=== PATIENT | female | born 1960 | race Caucasian/White ===

== ENCOUNTER 2022-10-12 20:13 | Inpatient (IN) | payer MEDICAID ==
[~2022-10-12] VITALS: Ht 149.9 cm; Wt 88.0 kg
[2022-10-12 20:13] VITALS: BP 130/80; PULSE 100; RESP 16; TEMP 98.4; O2SAT 98
[~2022-10-12 20:13] MED LIST: METF-1243 PO; METF-346 PO; SIMV-369 PO; SITA100T8 PO
[2022-10-12 21:09] LABS: EOSINOPHILS % (AUTO) 0.1 % (0.0-4.0); HEMATOCRIT 31.5 % (36-48); HEMOGLOBIN 10.5 g/dL (12.0-16.0); LYMPHOCYTES # (AUTO) 0.8 K/uL (2.5-16.5); LYMPHOCYTES % (AUTO) 3.9 % (20.5-51.1); MEAN CORPUSCULAR HEMOGLOBIN 29 pg (27-31); MEAN CORPUSCULAR HGB CONC 34 g/dL (33-37); MEAN CORPUSCULAR VOLUME 86.6 fL (80-94); MONOCYTES % (AUTO) 5.2 % (1.7-9.3); NEUTROPHILS # (AUTO) 18.1 K/uL (1.8-7.7); NEUTROPHILS % (AUTO) 90.8 % (42.2-75.2); PLATELET COUNT (AUTO) 115 K/uL (140-450); RED BLOOD CELL COUNT(AUTO) 3.63 MIL/uL (4.20-5.40); RED CELL DISTRIBUTION WIDTH 13.6 % (11.6-13.7)
[2022-10-12] MEDS ORDERED: NACL 0.9% 1,000 ML IV ONE ×2 (21:40→22:15)
[2022-10-12 21:44] LABS: ALANINE AMINOTRANSFERASE 27 U/L (12-78); ALBUMIN 2.6 g/dL (3.4-5.0); ALKALINE PHOSPHATASE 59 U/L (50-136); ANION GAP 25.5 (8-16); ASPARTATE AMINOTRANSFERASE 69 U/L (15-37); CALCIUM 8.4 mg/dL (8.5-10.1); CARBON DIOXIDE 15.8 mmol/L (21-32); CHLORIDE 98 mmol/L (98-107); GFR ARICAN-AMERICAN 10 mL/min (>90); GFR NON ARICAN-AMERICAN 8 mL/min (>90); GLUCOSE 294 mg/dL (74-106); POTASSIUM 4.3 mmol/L (3.5-5.1); SODIUM SERUM 135 mmol/L (136-145); TOTAL BILIRUBIN 1.3 mg/dL (0.0-1.0); TOTAL PROTEIN, SERUM 6.9 g/dL (6.4-8.2)
[2022-10-12] MEDS ORDERED: ASPIRIN 325 MG TAB PO ONE ×2 (21:50→23:00)
[2022-10-12 22:04] LABS: CREATININE 5.5 mg/dL (0.6-1.3); UREA NITROGEN, BLOOD 66 mg/dL (7-18)
[2022-10-12] MEDS ORDERED: CRUSHER, PILL MC ONE (22:06)
[2022-10-12] MEDS ORDERED: cefTRIAXone 1,000 MG VIAL ONE (22:37)
[2022-10-12] MEDS ORDERED: hePARIN / DEXT 5% PREMIX 250 ML IV ONE (22:55)
[2022-10-12] MEDS ORDERED: HEPARIN PER PHARMACY MC ONE (22:55)
[2022-10-12 23:09] LABS: LACTIC ACID 7.4 mmol/L (0.4-2.0)
[2022-10-12 23:21] LABS: INR 1.26 (0.8-1.2); PARTIAL THROMBOPLASTIN TIME 33.6 secs (22-35.6); PROTHROMBIN TIME 13.1 secs (10.8-13.4)
[2022-10-13] VITALS (32 sets, daily range): BP systolic 74–133; BP diastolic 43–81; PULSE 91–143; RESP 24–57; TEMP 97.6–101.4; O2SAT 94–100
[2022-10-13] MEDS ORDERED: fentaNYL citrate 0.05 MG/ML VIAL IVP ONE (00:20)
[2022-10-13] MEDS ORDERED: NOREPINEPHRINE 8 MG in DEXTROSE 5% 250 ML IV PRN (00:45)
[2022-10-13] MEDS ORDERED: VANCOMYCIN 1,000 MG in DEXTROSE 5% 250 ML IV ONE (00:50)
[2022-10-13] MEDS ORDERED: CALCIUM GLUC 1 GM/50 mL NS BAG 50 ML IV ONE ×2 (00:55→05:09)
[2022-10-13 01:28] LABS: APPEARANCE,URINE CLOUDY (CLEAR); BILIRUBIN,URINE NEGATIVE (NEGATIVE); BLOOD, URINE 2+ (NEGATIVE); COLOR,URINE YELLOW (YELLOW); LEUKOCYTE ESTERASE ,URINE 3+ (NEGATIVE); NITRITE, URINE NEGATIVE (NEGATIVE); PROTEIN,URINE 3+ (NEGATIVE); UGLUCOSE NEGATIVE (NEGATIVE); UROBILINOGEN,URINE 0.2 EU/dL (0.2 - 1)
[2022-10-13 01:31] LABS: BACTERIA,URINE >30 (MANY) /HPF (None Seen); MUCUS,URINE 1+ /LPF (None Seen); SQUAMOUS EPITHELIAL CELL,UR 4-10 (MOD) /LPF (0-3 (FEW)); WBC,URINE TOO MANY TO COUNT /HPF (0-5)
[2022-10-13] MEDS ORDERED: NOREPINEPHRINE 4 MG/4 ML VIAL IV ONE (01:36)
[2022-10-13] MEDS ORDERED: NACL 0.9% 1,000 ML IV SCH ×2 (01:50→05:40)
[2022-10-13] MEDS ORDERED: MAGNESIUM OXIDE 400 MG TAB PO PRN (01:50)
[2022-10-13] MEDS ORDERED: VANCOMYCIN PER PHARMACY MC PRN (01:50)
[2022-10-13] MEDS ORDERED: MORPHINE SULFATE 4 MG/ML SYR IVP PRN (01:50)
[2022-10-13] MEDS ORDERED: MAG SULF 2000 MG/WATER PREMIX 50 ML IV PRN (01:50)
[2022-10-13] MEDS ORDERED: POTASSIUM CHLORIDE 10 MEQ TABER PO PRN (01:50)
[2022-10-13] MEDS ORDERED: ONDANSETRON 4 MG/2 ML VIAL IVP PRN (01:50)
[2022-10-13] MEDS ORDERED: KCL 20 MEQ IN 100 mL PREMIX 200 ML IV PRN (01:50)
[2022-10-13] MEDS ORDERED: fentaNYL citrate 0.05 MG/ML VIAL ONE (03:55)
[2022-10-13] MEDS: hePARIN / DEXT 5% PREMIX 250 ML IV SCH (04:35)
[2022-10-13] MEDS ORDERED: VANCOMYCIN 1,000 MG VIAL ONE (05:07)
[2022-10-13 05:56] LABS: BLOOD GAS PH 7.365 (7.35-7.45)
[2022-10-13 05:57] LABS: BLOOD GAS BASE EXCESS -8.4 mmol/L (-2.0-2.0); BLOOD GAS HCO3 15.6 mmol/L (22-26); BLOOD GAS PO2 92.9 mmHg (75-100)
[2022-10-13] MEDS ORDERED: PIPERACILLIN/TAZOBACTAM 3.375 GM in DEXTROSE 5% 50 ML IV SCH (06:00)
[2022-10-13] MEDS: NOREPINEPHRINE 8 MG in DEXTROSE 5% 250 ML IV PRN ×2 (06:49→19:10)
[2022-10-13] MEDS ORDERED: PIPERACILLIN/TAZOBACTAM 2.25 GM in DEXTROSE 5% 50 ML IV SCH (07:23)
[2022-10-13] MEDS ORDERED: HEPARIN PER PHARMACY MC PRN (07:35)
[2022-10-13] MEDS: BLOOD GLUCOSE MONITORING 1 DEV DEV FS SCH ×4 (08:01→20:40)
[2022-10-13 08:06] LABS: HEMATOCRIT 31.6 % (36-48); HEMOGLOBIN 10.6 g/dL (12.0-16.0); MEAN CORPUSCULAR HEMOGLOBIN 29 pg (27-31); MEAN CORPUSCULAR HGB CONC 34 g/dL (33-37); MEAN CORPUSCULAR VOLUME 86.6 fL (80-94); PLATELET COUNT (AUTO) 118 K/uL (140-450); RED BLOOD CELL COUNT(AUTO) 3.65 MIL/uL (4.20-5.40); RED CELL DISTRIBUTION WIDTH 13.9 % (11.6-13.7)
[2022-10-13] MEDS: INSULIN LISPRO SLIDING SCALE 100 UNITS/ML VIAL SUBQ PRN ×2 (08:09→16:48)
[2022-10-13 08:13] LABS: WHITE BLOOD COUNT (AUTO) 28.7 K/uL (4.8-10.8)
[2022-10-13 08:19] LABS: ALBUMIN 2.4 g/dL (3.4-5.0); ANION GAP 20.8 (8-16); CALCIUM 8.5 mg/dL (8.5-10.1); CARBON DIOXIDE 19.7 mmol/L (21-32); POTASSIUM 4.5 mmol/L (3.5-5.1); TOTAL BILIRUBIN 1.1 mg/dL (0.0-1.0); TOTAL PROTEIN, SERUM 6.6 g/dL (6.4-8.2)
[2022-10-13 08:23] LABS: CREATININE 5.7 mg/dL (0.6-1.3)
[2022-10-13 08:48] LABS: BASOPHILS % (MANUAL) 0 % (0-2); BLASTS, MANUAL % 0 % (0-0); EOSINOPHILS % (MANUAL) 0 % (0-4); LYMPHOCYTES % (MANUAL) 2 % (20-46); METAMYELOCYTES % 0 % (0-0); MONOCYTES % (MANUAL) 2 % (5-12); MYELOCYTES % 0 % (0-0); OTHER CELLS,MANUAL % 0 (0-0); PROMYELOCYTES % 0 % (0-0)
[2022-10-13] MEDS ORDERED: ASPIRIN 325 MG TABEC PO ONE (09:00)
[2022-10-13] MEDS ORDERED: FUROSEMIDE 40 MG/4 ML VIAL IVP SCH (09:27)
[2022-10-13] MEDS: LORazepam 2 MG/ML VIAL ONE ×2 (09:49→10:24)
[2022-10-13] MEDS ORDERED: LORazepam 2 MG/ML VIAL IVP PRN (10:20)
[2022-10-13] MEDS: ALBUTEROL SULFATE/IPRATROPIU 3 ML SOL IH PRN (11:02)
[2022-10-13] MEDS ORDERED: DEXMEDETOMIDINE HCL 400 MCG in NACL 0.9% 96 ML IV PRN (11:15)
[2022-10-13 12:17] LABS: BLOOD GAS PCO2 22.6 mmHg (35-45); BLOOD GAS PH 7.356 (7.35-7.45); BLOOD GAS PO2 78.7 mmHg (75-100)
[2022-10-13 12:18] LABS: BLOOD GAS BASE EXCESS -11.3 mmol/L (-2.0-2.0); BLOOD GAS HCO3 12.4 mmol/L (22-26); BLOOD GAS O2 SAT% 95.5 % (92.0-98.5)
[2022-10-13] MEDS: ALBUTEROL SULFATE/IPRATROPIU 3 ML SOL IH SCH ×2 (13:10→19:06)
[2022-10-13] MEDS: ALBUMIN HUMAN 25% 100 ML IV SCH ×2 (13:47→20:42)
[2022-10-13] MEDS: METOCLOPRAMIDE 10 MG/2 ML INJ VIAL IVP SCH ×2 (13:47→20:41)
[2022-10-13] MEDS: metroNIDAZOLE 500 MG/NS PREMIX 100 ML IV SCH ×2 (14:27→20:41)
[2022-10-13] MEDS ORDERED: ACETAMINOPHEN 650 MG SUPP RC PRN (20:05)
[2022-10-13] MEDS: PIPERACILLIN/TAZOBACTAM 2.25 GM in DEXTROSE 5% 50 ML IV SCH (20:40)
[2022-10-14] VITALS (36 sets, daily range): BP systolic 97–140; BP diastolic 49–92; PULSE 93–105; RESP 18–37; TEMP 95.5–99.4; O2SAT 96–100
[2022-10-14] MEDS: ALBUTEROL SULFATE/IPRATROPIU 3 ML SOL IH SCH ×4 (01:10→19:21)
[2022-10-14] MEDS: ALBUMIN HUMAN 25% 100 ML IV SCH (04:16)
[2022-10-14] MEDS: METOCLOPRAMIDE 10 MG/2 ML INJ VIAL IVP SCH (04:16)
[2022-10-14] MEDS: PIPERACILLIN/TAZOBACTAM 2.25 GM in DEXTROSE 5% 50 ML IV SCH ×3 (04:17→21:03)
[2022-10-14] MEDS: metroNIDAZOLE 500 MG/NS PREMIX 100 ML IV SCH ×3 (04:17→21:03)
[2022-10-14 06:18] LABS: BASOPHILS % (AUTO) 0.1 % (0.0-2.0); EOSINOPHILS # (AUTO) 0.6 K/uL (0-0.4); EOSINOPHILS % (AUTO) 2.1 % (0.0-4.0); LYMPHOCYTES # (AUTO) 1.2 K/uL (2.5-16.5); LYMPHOCYTES % (AUTO) 3.9 % (20.5-51.1); MEAN CORPUSCULAR HEMOGLOBIN 29 pg (27-31); MEAN CORPUSCULAR HGB CONC 34 g/dL (33-37); MEAN CORPUSCULAR VOLUME 86.8 fL (80-94); MONOCYTES # (AUTO) 1.2 K/uL (0.8-1.0); MONOCYTES % (AUTO) 3.8 % (1.7-9.3); NEUTROPHILS # (AUTO) 28.4 K/uL (1.8-7.7); NEUTROPHILS % (AUTO) 90.1 % (42.2-75.2); PLATELET COUNT (AUTO) 74 K/uL (140-450); RED BLOOD CELL COUNT(AUTO) 2.15 MIL/uL (4.20-5.40); RED CELL DISTRIBUTION WIDTH 14.3 % (11.6-13.7)
[2022-10-14] MEDS: BLOOD GLUCOSE MONITORING 1 DEV DEV FS SCH ×4 (06:33→21:00)
[2022-10-14 06:41] LABS: HEMATOCRIT 18.6 % (36-48); HEMOGLOBIN 6.3 g/dL (12.0-16.0); WHITE BLOOD COUNT (AUTO) 31.5 K/uL (4.8-10.8)
[2022-10-14 06:54] LABS: ALBUMIN 2.5 g/dL (3.4-5.0); CALCIUM 7.7 mg/dL (8.5-10.1); CARBON DIOXIDE 16.2 mmol/L (21-32); MAGNESIUM 1.7 mg/dL (1.8-2.4); PHOSPHORUS 6.3 mg/dL (2.5-4.9); POTASSIUM 4.2 mmol/L (3.5-5.1); TOTAL BILIRUBIN 2.5 mg/dL (0.0-1.0); TOTAL PROTEIN, SERUM 6.2 g/dL (6.4-8.2)
[2022-10-14 07:28] LABS: BASOPHILS # (AUTO) 0.1 K/uL (0.00-0.22); BASOPHILS % (AUTO) 0.2 % (0.0-2.0); EOSINOPHILS # (AUTO) 0.9 K/uL (0-0.4); EOSINOPHILS % (AUTO) 3.3 % (0.0-4.0); HEMATOCRIT 25.9 % (36-48); HEMOGLOBIN 8.7 g/dL (12.0-16.0); LYMPHOCYTES # (AUTO) 1.1 K/uL (2.5-16.5); LYMPHOCYTES % (AUTO) 4.1 % (20.5-51.1); MEAN CORPUSCULAR HEMOGLOBIN 29 pg (27-31); MEAN CORPUSCULAR HGB CONC 34 g/dL (33-37); MEAN CORPUSCULAR VOLUME 85.7 fL (80-94); MONOCYTES # (AUTO) 0.7 K/uL (0.8-1.0); MONOCYTES % (AUTO) 2.8 % (1.7-9.3); NEUTROPHILS # (AUTO) 23.5 K/uL (1.8-7.7); NEUTROPHILS % (AUTO) 89.6 % (42.2-75.2); PLATELET COUNT (AUTO) 63 K/uL (140-450); RED BLOOD CELL COUNT(AUTO) 3.02 MIL/uL (4.20-5.40); RED CELL DISTRIBUTION WIDTH 14.3 % (11.6-13.7)
[2022-10-14 07:39] LABS: WHITE BLOOD COUNT (AUTO) 26.2 K/uL (4.8-10.8)
[2022-10-14 07:51] LABS: CREATININE 6.4 mg/dL (0.6-1.3)
[2022-10-14] MEDS: ATORVASTATIN 80 MG TAB PO SCH (09:00)
[2022-10-14] MEDS: ECOTRIN 81 MG TABEC PO SCH (09:00)
[2022-10-14] MEDS: NOREPINEPHRINE 8 MG in DEXTROSE 5% 250 ML IV PRN (09:25)
[2022-10-14] MEDS: hePARIN / DEXT 5% PREMIX 250 ML IV SCH (09:28)
[2022-10-14] MEDS: INSULIN LISPRO SLIDING SCALE 100 UNITS/ML VIAL SUBQ PRN ×2 (13:20→23:18)
[2022-10-15] VITALS (27 sets, daily range): BP systolic 102–144; BP diastolic 51–73; PULSE 80–99; RESP 18–34; TEMP 96.1–97.3; O2SAT 87–100
[2022-10-15] MEDS: ALBUTEROL SULFATE/IPRATROPIU 3 ML SOL IH SCH ×4 (00:02→18:54)
[2022-10-15] MEDS: NOREPINEPHRINE 8 MG in DEXTROSE 5% 250 ML IV PRN (03:34)
[2022-10-15] MEDS: PIPERACILLIN/TAZOBACTAM 2.25 GM in DEXTROSE 5% 50 ML IV SCH ×3 (04:38→21:37)
[2022-10-15] MEDS: metroNIDAZOLE 500 MG/NS PREMIX 100 ML IV SCH ×3 (04:54→21:37)
[2022-10-15 05:57] LABS: HEMATOCRIT 26.9 % (36-48); HEMOGLOBIN 9.3 g/dL (12.0-16.0); MEAN CORPUSCULAR HEMOGLOBIN 29 pg (27-31); MEAN CORPUSCULAR HGB CONC 35 g/dL (33-37); MEAN CORPUSCULAR VOLUME 84.4 fL (80-94); PLATELET COUNT (AUTO) 55 K/uL (140-450); RED BLOOD CELL COUNT(AUTO) 3.19 MIL/uL (4.20-5.40); RED CELL DISTRIBUTION WIDTH 13.9 % (11.6-13.7); WHITE BLOOD COUNT (AUTO) 21.9 K/uL (4.8-10.8)
[2022-10-15 06:16] LABS: ALBUMIN 2.3 g/dL (3.4-5.0); CALCIUM 7.9 mg/dL (8.5-10.1); CARBON DIOXIDE 24.3 mmol/L (21-32); CREATININE 3.4 mg/dL (0.6-1.3); MAGNESIUM 1.9 mg/dL (1.8-2.4); PHOSPHORUS 2.8 mg/dL (2.5-4.9); POTASSIUM 3.3 mmol/L (3.5-5.1); TOTAL BILIRUBIN 2.3 mg/dL (0.0-1.0); TOTAL PROTEIN, SERUM 6.1 g/dL (6.4-8.2)
[2022-10-15 06:32] LABS: MONOCYTES % (MANUAL) 6 % (5-12)
[2022-10-15 06:34] LABS: LYMPHOCYTES % (MANUAL) 8 % (20-46)
[2022-10-15] MEDS: BLOOD GLUCOSE MONITORING 1 DEV DEV FS SCH ×4 (07:30→21:37)
[2022-10-15] MEDS: INSULIN LISPRO SLIDING SCALE 100 UNITS/ML VIAL SUBQ PRN ×3 (08:58→21:41)
[2022-10-15] MEDS: ATORVASTATIN 80 MG TAB PO SCH (09:04)
[2022-10-15] MEDS: ECOTRIN 81 MG TABEC PO SCH (09:08)
[2022-10-15] MEDS: PANTOPRAZOLE 40 MG INJ VIAL IVP SCH (09:08)
[2022-10-15] MEDS: hePARIN / DEXT 5% PREMIX 250 ML IV SCH (15:16)
[2022-10-16] VITALS (25 sets, daily range): BP systolic 96–139; BP diastolic 45–87; PULSE 81–96; RESP 16–30; TEMP 96.6–97.9; O2SAT 95–100
[2022-10-16] MEDS: ALBUTEROL SULFATE/IPRATROPIU 3 ML SOL IH SCH ×4 (01:02→19:00)
[2022-10-16] MEDS: PIPERACILLIN/TAZOBACTAM 2.25 GM in DEXTROSE 5% 50 ML IV SCH ×3 (05:02→21:53)
[2022-10-16] MEDS: metroNIDAZOLE 500 MG/NS PREMIX 100 ML IV SCH ×3 (05:02→22:02)
[2022-10-16] MEDS: BLOOD GLUCOSE MONITORING 1 DEV DEV FS SCH ×4 (07:30→21:00)
[2022-10-16 08:38] LABS: HEMOGLOBIN 9.9 g/dL (12.0-16.0); PLATELET COUNT (AUTO) 48 K/uL (140-450)
[2022-10-16 08:44] LABS: HEMATOCRIT 28.7 % (36-48); MEAN CORPUSCULAR HEMOGLOBIN 29 pg (27-31); MEAN CORPUSCULAR HGB CONC 34 g/dL (33-37); MEAN CORPUSCULAR VOLUME 84.7 fL (80-94); RED BLOOD CELL COUNT(AUTO) 3.39 MIL/uL (4.20-5.40); RED CELL DISTRIBUTION WIDTH 14.1 % (11.6-13.7)
[2022-10-16] MEDS: ECOTRIN 81 MG TABEC PO SCH (08:48)
[2022-10-16] MEDS: ATORVASTATIN 80 MG TAB PO SCH (08:48)
[2022-10-16] MEDS: INSULIN LISPRO SLIDING SCALE 100 UNITS/ML VIAL SUBQ PRN ×4 (08:52→23:00)
[2022-10-16] MEDS: PANTOPRAZOLE 40 MG INJ VIAL IVP SCH (08:53)
[2022-10-16 08:55] LABS: EOSINOPHILS % (MANUAL) 1 % (0-4); LYMPHOCYTES % (MANUAL) 10 % (20-46); MONOCYTES % (MANUAL) 6 % (5-12)
[2022-10-16 09:08] LABS: ANION GAP 12.9 (8-16); CALCIUM 7.5 mg/dL (8.5-10.1); CARBON DIOXIDE 27.5 mmol/L (21-32); CREATININE 2.8 mg/dL (0.6-1.3); MAGNESIUM 1.8 mg/dL (1.8-2.4); PHOSPHORUS 1.9 mg/dL (2.5-4.9); POTASSIUM 3.4 mmol/L (3.5-5.1); TOTAL BILIRUBIN 2.4 mg/dL (0.0-1.0); TOTAL PROTEIN, SERUM 5.7 g/dL (6.4-8.2)
[2022-10-16 18:02] LABS: ANION GAP 13.5 (8-16); CALCIUM 7.5 mg/dL (8.5-10.1); CREATININE 3.3 mg/dL (0.6-1.3); POTASSIUM 3.5 mmol/L (3.5-5.1)
[2022-10-16 18:14] LABS: ANION GAP 12.8 (8-16); CALCIUM 7.4 mg/dL (8.5-10.1); CARBON DIOXIDE 27.7 mmol/L (21-32); CREATININE 3.3 mg/dL (0.6-1.3); POTASSIUM 3.5 mmol/L (3.5-5.1)
[2022-10-17] VITALS (9 sets, daily range): BP systolic 107–158; BP diastolic 48–79; PULSE 71–87; RESP 18–20; TEMP 97.5–97.8; O2SAT 90–98
[2022-10-17] MEDS: PIPERACILLIN/TAZOBACTAM 2.25 GM in DEXTROSE 5% 50 ML IV SCH ×3 (04:53→23:43)
[2022-10-17] MEDS: metroNIDAZOLE 500 MG/NS PREMIX 100 ML IV SCH (05:29)
[2022-10-17 05:49] LABS: BASOPHILS % (AUTO) 0.1 % (0.0-2.0); EOSINOPHILS # (AUTO) 0.2 K/uL (0-0.4); EOSINOPHILS % (AUTO) 1.1 % (0.0-4.0); HEMATOCRIT 28.5 % (36-48); HEMOGLOBIN 9.7 g/dL (12.0-16.0); LYMPHOCYTES # (AUTO) 1.4 K/uL (2.5-16.5); LYMPHOCYTES % (AUTO) 7.7 % (20.5-51.1); MEAN CORPUSCULAR HEMOGLOBIN 29 pg (27-31); MEAN CORPUSCULAR HGB CONC 34 g/dL (33-37); MEAN CORPUSCULAR VOLUME 85.8 fL (80-94); MONOCYTES # (AUTO) 0.8 K/uL (0.8-1.0); MONOCYTES % (AUTO) 4.5 % (1.7-9.3); NEUTROPHILS # (AUTO) 15.5 K/uL (1.8-7.7); NEUTROPHILS % (AUTO) 86.6 % (42.2-75.2); PLATELET COUNT (AUTO) 35 K/uL (140-450); RED BLOOD CELL COUNT(AUTO) 3.33 MIL/uL (4.20-5.40); WHITE BLOOD COUNT (AUTO) 17.9 K/uL (4.8-10.8)
[2022-10-17] MEDS: BLOOD GLUCOSE MONITORING 1 DEV DEV FS SCH ×4 (06:42→21:00)
[2022-10-17] MEDS: INSULIN LISPRO SLIDING SCALE 100 UNITS/ML VIAL SUBQ PRN (06:44)
[2022-10-17 08:44] LABS: ALBUMIN 1.9 g/dL (3.4-5.0); ANION GAP 13.6 (8-16); CALCIUM 7.3 mg/dL (8.5-10.1); CARBON DIOXIDE 27.1 mmol/L (21-32); CREATININE 3.7 mg/dL (0.6-1.3); MAGNESIUM 1.9 mg/dL (1.8-2.4); PHOSPHORUS 2.4 mg/dL (2.5-4.9); POTASSIUM 3.7 mmol/L (3.5-5.1); TOTAL BILIRUBIN 1.6 mg/dL (0.0-1.0); TOTAL PROTEIN, SERUM 5.4 g/dL (6.4-8.2)
[2022-10-17] MEDS: ECOTRIN 81 MG TABEC PO SCH (09:00)
[2022-10-17] MEDS: ATORVASTATIN 80 MG TAB PO SCH (09:43)
[2022-10-17] MEDS: PANTOPRAZOLE 40 MG INJ VIAL IVP SCH (09:45)
[2022-10-18] VITALS (8 sets, daily range): BP systolic 115–137; BP diastolic 31–64; PULSE 75–93; RESP 18–20; TEMP 96.8–98.5; O2SAT 94–98
[2022-10-18] MEDS: PIPERACILLIN/TAZOBACTAM 2.25 GM in DEXTROSE 5% 50 ML IV SCH (06:06)
[2022-10-18 06:41] LABS: BASOPHILS % (AUTO) 0.1 % (0.0-2.0); EOSINOPHILS # (AUTO) 0.2 K/uL (0-0.4); EOSINOPHILS % (AUTO) 1.1 % (0.0-4.0); HEMATOCRIT 28.6 % (36-48); HEMOGLOBIN 9.6 g/dL (12.0-16.0); LYMPHOCYTES # (AUTO) 1.5 K/uL (2.5-16.5); LYMPHOCYTES % (AUTO) 7.5 % (20.5-51.1); MEAN CORPUSCULAR HEMOGLOBIN 29 pg (27-31); MEAN CORPUSCULAR HGB CONC 34 g/dL (33-37); MEAN CORPUSCULAR VOLUME 85.4 fL (80-94); MONOCYTES # (AUTO) 1.5 K/uL (0.8-1.0); MONOCYTES % (AUTO) 7.6 % (1.7-9.3); NEUTROPHILS # (AUTO) 16.9 K/uL (1.8-7.7); NEUTROPHILS % (AUTO) 83.7 % (42.2-75.2); PLATELET COUNT (AUTO) 31 K/uL (140-450); RED BLOOD CELL COUNT(AUTO) 3.35 MIL/uL (4.20-5.40); RED CELL DISTRIBUTION WIDTH 13.8 % (11.6-13.7); WHITE BLOOD COUNT (AUTO) 20.2 K/uL (4.8-10.8)
[2022-10-18 06:51] LABS: ALBUMIN 1.8 g/dL (3.4-5.0); ANION GAP 13.9 (8-16); CALCIUM 7.3 mg/dL (8.5-10.1); CARBON DIOXIDE 26.7 mmol/L (21-32); CREATININE 3.1 mg/dL (0.6-1.3); MAGNESIUM 1.9 mg/dL (1.8-2.4); PHOSPHORUS 3.4 mg/dL (2.5-4.9); POTASSIUM 3.6 mmol/L (3.5-5.1); TOTAL BILIRUBIN 1.2 mg/dL (0.0-1.0); TOTAL PROTEIN, SERUM 5.4 g/dL (6.4-8.2)
[2022-10-18] MEDS: BLOOD GLUCOSE MONITORING 1 DEV DEV FS SCH ×4 (06:59→21:11)
[2022-10-18] MEDS: INSULIN LISPRO SLIDING SCALE 100 UNITS/ML VIAL SUBQ PRN ×4 (07:01→21:15)
[2022-10-18] MEDS: ATORVASTATIN 80 MG TAB PO SCH (08:35)
[2022-10-18] MEDS: ECOTRIN 81 MG TABEC PO SCH (08:39)
[2022-10-18] MEDS: ALBUTEROL SULFATE/IPRATROPIU 3 ML SOL IH PRN (09:31)
[2022-10-18] MEDS: PANTOPRAZOLE 40 MG INJ VIAL IVP SCH (10:07)
[2022-10-18] MEDS ORDERED: FUROSEMIDE 40 MG/4 ML VIAL IVP SCH (14:45)
[2022-10-18] MEDS ORDERED: FLUCONAZOLE 100 MG TAB PO SCH (21:25)
[2022-10-20 06:08] LABS: HEPATITIS B CORE AB TOTAL Negative (Negative); HEPATITIS B SURFACE ANTIBODY Non Reactive (.); HEPATITIS B SURFACE ANTIGEN Negative (Negative); HEPATITIS C AB Non Reactive (Non Reactive)
[2022-10-20 16:15] LABS: HEPATITIS C PCR QUANTITATIVE NON REACTIVE
== END 2022-10-18 00:10 | disposition short-term general hospital (02) | DRG 720 ==
LOC: MED 20:13 → MTU 10-13 01:53 → MIC 10-13 04:25 → MTU 10-16 20:00
PROVIDERS: ADMIT Internal Medicine; ATTEND Internal Medicine
PROC: 05JY3ZZ Inspection of Upper Vein, Percutaneous Approach (ICD-10-PCS; 2022-10-13)
PROC: 05JY3ZZ Inspection of Upper Vein, Percutaneous Approach (ICD-10-PCS; 2022-10-13)
PROC: 02H633Z Insertion of Infusion Device into Right Atrium, Percutaneous Approach (ICD-10-PCS; 2022-10-13)
PROC: B548ZZA Ultrasonography of Superior Vena Cava, Guidance (ICD-10-PCS; 2022-10-13)
PROC: 06HY33Z Insertion of Infusion Device into Lower Vein, Percutaneous Approach (ICD-10-PCS; 2022-10-13)
PROC: B54CZZA Ultrasonography of Left Lower Extremity Veins, Guidance (ICD-10-PCS; 2022-10-13)
PROC: 5A09457 Assistance with Respiratory Ventilation, 24-96 Consecutive Hours, Continuous Positive Airway Pressure (ICD-10-PCS; 2022-10-13)
PROC: 5A1D70Z Performance of Urinary Filtration, Intermittent, Less than 6 Hours Per Day (ICD-10-PCS; principal; 2022-10-14)
PROC: 5A1D70Z Performance of Urinary Filtration, Intermittent, Less than 6 Hours Per Day (ICD-10-PCS; 2022-10-15)
PROC: 5A1D70Z Performance of Urinary Filtration, Intermittent, Less than 6 Hours Per Day (ICD-10-PCS; 2022-10-17)
PROC: 5A1D70Z Performance of Urinary Filtration, Intermittent, Less than 6 Hours Per Day (ICD-10-PCS; 2022-10-18)
DX: A41.51 Sepsis due to Escherichia coli [E. coli] (principal); N17.0 Acute kidney failure with tubular necrosis; J96.01 Acute respiratory failure with hypoxia; R65.21 Severe sepsis with septic shock; E43 Unspecified severe protein-calorie malnutrition; I21.A1 Myocardial infarction type 2; D69.6 Thrombocytopenia, unspecified; I42.9 Cardiomyopathy, unspecified; Z20.822 Contact with and (suspected) exposure to COVID-19; I50.20 Unspecified systolic (congestive) heart failure; J18.9 Pneumonia, unspecified organism; I11.0 Hypertensive heart disease with heart failure; I69.351 Hemiplegia and hemiparesis following cerebral infarction affecting right dominant side; N39.0 Urinary tract infection, site not specified; N13.9 Obstructive and reflux uropathy, unspecified; E11.51 Type 2 diabetes mellitus with diabetic peripheral angiopathy without gangrene; R74.01 Elevation of levels of liver transaminase levels; D64.9 Anemia, unspecified; E11.65 Type 2 diabetes mellitus with hyperglycemia; E78.5 Hyperlipidemia, unspecified; B96.20 Unspecified Escherichia coli [E. coli] as the cause of diseases classified elsewhere; J98.11 Atelectasis; N28.89 Other specified disorders of kidney and ureter; N20.2 Calculus of kidney with calculus of ureter; Z89.511 Acquired absence of right leg below knee; Z87.442 Personal history of urinary calculi; Z88.4 Allergy status to anesthetic agent; Z79.899 Other long term (current) drug therapy; Z68.39 Body mass index [BMI] 39.0-39.9, adult
CPT/HCPCS: 36415; 36556; 36600; 43753; 71045; 71250; 74150; 76770; 80048; 80053; 81001; 82272; 82803; 82948; 83605; 83735; 84100; 84484; 85025; 85610; 85730; 86704; 86706; 86804; 87040; 87081; 87086; 87340; 87522; 93005; 94640; 94660; 96361; 96365; 97110; 97163-GP; 99291; C9113; J0610; J0696; J1644; J1815; J1940; J2060; J2270; J2543; J2765; J3010; J3370; J3490; J7060; P9046; Q0092